=== PATIENT | female | born 1990 | race Caucasian/White ===

== ENCOUNTER 2017-07-19 12:57 | Inpatient (IN) | payer OTHER ==
[~2017-07-19] VITALS: Ht 154.9 cm; Wt 97.5 kg
[2017-07-19] MEDS ORDERED: PRENATABS RX T1 EACH PO (14:19)
[2017-07-19] MEDS ORDERED: PLAQUENIL PO (14:19)
[2017-07-20] MEDS ORDERED: ASA81 MG PO (06:21)
[2017-07-20] MEDS ORDERED: LOVENOX30 MG/0.3 SUBCUTANEO (06:22)
== END 2017-07-22 14:26 | disposition home or self-care (01) | DRG 766 ==
LOC: OB/GYN 07-20 05:46 → O/R 07-20 05:46 → OB/GYN 07-20 11:29
PROVIDERS: Specialist
PROC: 4A1HXCZ Monitoring of Products of Conception, Cardiac Rate, External Approach (ICD-10-PCS; 2017-07-20)
PROC: 10D00Z1 Extraction of Products of Conception, Low, Open Approach (ICD-10-PCS; principal; 2017-07-20 10:15)
DX: O24.420 Gestational diabetes mellitus in childbirth, diet controlled (principal); O43.893 Other placental disorders, third trimester; Z3A.38 38 weeks gestation of pregnancy; Z37.0 Single live birth